=== PATIENT | female | born 1950 | race Two or more races ===

== ENCOUNTER 2022-07-08 13:34 | Inpatient (IN) | payer OTHER ==
[~2022-07-08] VITALS: Ht 165.1 cm; Wt 59.0 kg
[2022-07-08] MEDS ORDERED: LOSARTAN POTASS25 MG PO (14:02)
[2022-07-08] MEDS ORDERED: GABAPENTIN800 M1 PO (14:02)
[2022-07-10] MEDS ORDERED: FLONASE16 GM (15:19)
[2022-07-10] MEDS ORDERED: JULUCA 50-25 M1 EACH (15:19)
[2022-07-10] MEDS ORDERED: ESCITALOPRAM OXA5 MG (15:19)
[2022-07-10] MEDS ORDERED: CLOTRIMAZOLE-BE15 G1 (15:19)
[2022-07-10] MEDS ORDERED: FAMOTIDINE20 MG (15:19)
[2022-07-10] MEDS ORDERED: PANTOPRAZOLE SO40 MG (15:19)
[2022-07-10] MEDS ORDERED: ROSUVASTATIN CA10 MG (15:19)
[2022-07-10] MEDS ORDERED: RESTORIL30 MG (15:19)
[2022-07-10] MEDS ORDERED: CENTRUM SILVER1 EAC2 (15:19)
[2022-07-14] MEDS ORDERED: FAMOTIDINE20 MG PO (11:55)
[2022-07-14] MEDS ORDERED: LOSARTAN POTASS25 MG PO (11:55)
[2022-07-14] MEDS ORDERED: PANTOPRAZOLE SO40 MG PO (11:55)
[2022-07-14] MEDS ORDERED: PROTEINEX-18 LI30 ML PO (11:55)
[2022-07-14] MEDS ORDERED: RESTORIL30 MG PO (11:55)
[2022-07-14] MEDS ORDERED: OXYC1TAB9 PO (11:55)
== END 2022-07-14 19:30 | disposition home or self-care (01) | DRG 683 ==
LOC: ER 13:34 → MEDJ 07-09 00:14
PROVIDERS: ADMIT Internal Medicine; ATTEND Internal Medicine
PROC: BW28ZZZ Computerized Tomography (CT Scan) of Head (ICD-10-PCS; principal; 2022-07-08)
PROC: BB24ZZZ Computerized Tomography (CT Scan) of Bilateral Lungs (ICD-10-PCS; 2022-07-08)
PROC: BT4JZZZ Ultrasonography of Kidneys and Bladder (ICD-10-PCS; 2022-07-08)
PROC: BW21ZZZ Computerized Tomography (CT Scan) of Abdomen and Pelvis (ICD-10-PCS; 2022-07-09)
PROC: 02HV33Z Insertion of Infusion Device into Superior Vena Cava, Percutaneous Approach (ICD-10-PCS; 2022-07-09)
DX: N18.2 Chronic kidney disease, stage 2 (mild) (principal); J90 Pleural effusion, not elsewhere classified; S22.41XA Multiple fractures of ribs, right side, initial encounter for closed fracture; N17.8 Other acute kidney failure; W19.XXXA Unspecified fall, initial encounter; Y92.89 Other specified places as the place of occurrence of the external cause; B02.9 Zoster without complications; I10 Essential (primary) hypertension; E78.49 Other hyperlipidemia; N13.39 Other hydronephrosis; Z74.09 Other reduced mobility

== ENCOUNTER 2022-07-18 10:39 | Inpatient (IN) | payer OTHER ==
[~2022-07-18] VITALS: Ht 165.1 cm; Wt 57.6 kg
[~2022-07-18 10:39] MED LIST: CENTRUM SILVER1 EAC2; CLOTRIMAZOLE-BE15 G1; ESCITALOPRAM OXA5 MG; FAMOTIDINE20 MG; FAMOTIDINE20 MG PO; FLONASE16 GM; GABAPENTIN800 M1 PO; JULUCA 50-25 M1 EACH; LOSARTAN POTASS25 MG PO; OXYC1TAB9 PO; PANTOPRAZOLE SO40 MG; PANTOPRAZOLE SO40 MG PO; PROTEINEX-18 LI30 ML PO; RESTORIL30 MG; RESTORIL30 MG PO; ROSUVASTATIN CA10 MG
[2022-07-26] MEDS ORDERED: INTESTINEX680 M2 PO (13:04)
[2022-07-26] MEDS ORDERED: VANCOMYCIN HCL125 MG PO (13:04)
[2022-07-26] MEDS ORDERED: MEGESTROL400 MG/11 PO (13:04)
[2022-07-26] MEDS ORDERED: AMOX-CLAV 875-1 EAC1 PO (13:04)
== END 2022-07-26 14:05 | disposition home or self-care (01) | DRG 689 ==
LOC: ER 10:39 → MEDI 20:00
PROVIDERS: ADMIT Internal Medicine; ATTEND Internal Medicine
PROC: BB24ZZZ Computerized Tomography (CT Scan) of Bilateral Lungs (ICD-10-PCS; principal; 2022-07-18)
PROC: BW28ZZZ Computerized Tomography (CT Scan) of Head (ICD-10-PCS; 2022-07-18)
PROC: 3E0F7GC Introduction of Other Therapeutic Substance into Respiratory Tract, Via Natural or Artificial Opening (ICD-10-PCS; 2022-07-18)
PROC: 02HV33Z Insertion of Infusion Device into Superior Vena Cava, Percutaneous Approach (ICD-10-PCS; 2022-07-19)
DX: N39.0 Urinary tract infection, site not specified (principal); J18.9 Pneumonia, unspecified organism; I12.9 Hypertensive chronic kidney disease with stage 1 through stage 4 chronic kidney disease, or unspecified chronic kidney disease; N18.2 Chronic kidney disease, stage 2 (mild); R41.0 Disorientation, unspecified; Z87.891 Personal history of nicotine dependence; E86.0 Dehydration; E78.49 Other hyperlipidemia; E87.6 Hypokalemia